=== PATIENT | female | born 1965 | race Hispanic/Latino ===

== ENCOUNTER 2020-07-13 15:03 | Inpatient (IN) | payer OTHER, SELFPAY ==
[~2020-07-13] VITALS: Ht 157.5 cm; Wt 77.8 kg
[2020-07-13] MEDS ORDERED: 0.9%NACL 100ML 100 ML IV ONE (15:21)
[2020-07-13] MEDS ORDERED: DEXAMETHASONE SOD PHOSPHATE 10MG/ML 1ML VIAL ONE (15:22)
[2020-07-13] MEDS ORDERED: CEFTRIAXONE 1G VIAL ONE (15:22)
[2020-07-13 15:30] LABS: BASOPHILS % (AUTO) 0.2 % (0.0-5.0); LYMPHOCYTES % (AUTO) 17.6 % (21.0-51.0); MEAN CORPUSCULAR HEMOGLOBIN 27.1 pg (27.0-33.0); MEAN CORPUSCULAR HGB CONC 32.7 g/dL (32.0-36.0); MEAN CORPUSCULAR VOLUME 82.8 fL (79-99); MONOCYTES % (AUTO) 5.8 % (3.0-13.0); NEUTROPHILS % (AUTO) 76.1 % (40.0-77.0); PLATELET COUNT (AUTO) 114 K/uL (130-400); RED BLOOD CELL COUNT(AUTO) 4.47 MIL/uL (4.00-5.50); RED CELL DISTRIBUTION WIDTH 13.3 % (11.0-15.5); WHITE BLOOD COUNT (AUTO) 6.6 K/uL (4.8-10.8)
[2020-07-13] MEDS ORDERED: AZITHROMYCIN 250 MG TABLET PO ONE (15:32)
[2020-07-13 15:42] LABS: INR 1.12 (0.85-1.15); PROTHROMBIN TIME 11.9 SEC (9.6-11.6)
[2020-07-13 15:43] LABS: PARTIAL THROMBOPLASTIN TIME 29.6 SEC (26.3-35.5)
[2020-07-13 15:46] LABS: CREATININE 0.9 mg/dL (0.5-1.5); POTASSIUM 3.6 mmol/L (3.5-5.1)
[2020-07-13 15:51] LABS: ALBUMIN 3.3 g/dL (3.5-5.0); BILIRUBIN,TOTAL 0.6 mg/dL (0.2-1.0); TOTAL PROTEIN, SERUM 8.6 g/dL (6.0-8.3)
[2020-07-13 16:10] LABS: B-TYPE NATRIURETIC PEPTIDE 32 pg/mL (0-100)
[2020-07-13 16:28] LABS: ABG BASE EXCESS 3.8 mmol/L (-2.0-3.0); ABG HCO3 27.1 mmol/L (21.0-28.0); ABG OXYGEN SATURATION 92.8 % (95.0-99.0); ABG PCO2 36 mmHg (32-45)
[2020-07-13 18:41] LABS: APPEARANCE,URINE CLEAR (CLEAR); BILIRUBIN,URINE Negative (NEGATIVE); COLOR,URINE Yellow (YELLOW); GLUCOSE, URINE (UA) Negative (NEGATIVE); KETONES,URINE Negative (NEGATIVE); LEUKOCYTE ESTERASE ,URINE Negative (NEGATIVE); NITRATE,URINE Negative (NEGATIVE); OCCULT BLOOD,URINE Negative (NEGATIVE); PROTEIN,URINE Negative (NEGATIVE); UROBILINOGEN,URINE 0.2 mg/dL (0.2-1.0)
[2020-07-13] MEDS ORDERED: ONDANSETRON 4MG INJ IV PRN (21:15)
[2020-07-13] MEDS ORDERED: ACETAMINOPHEN 325 MG TAB PO PRN ×2 (21:15)
[2020-07-13] MEDS ORDERED: LACTULOSE 20 GM/30 ML UDCUP PO PRN (21:15)
[2020-07-13 22:01] LABS: HEMOGLOBIN A1C 6.9 % (4.0-6.0)
[2020-07-13 22:11] LABS: CRP QUANTITATIVE 80.1 mg/L (0.00-9.0); THYROID STIMULATING HORMONE 6.85 uIU/mL (0.36-3.74)
[2020-07-14 05:41] LABS: ALBUMIN 3.2 g/dL (3.5-5.0); BILIRUBIN,TOTAL 0.5 mg/dL (0.2-1.0); CREATININE 0.8 mg/dL (0.5-1.5); CRP QUANTITATIVE 84.7 mg/L (0.00-9.0); POTASSIUM 3.9 mmol/L (3.5-5.1); TOTAL PROTEIN, SERUM 7.7 g/dL (6.0-8.3)
[2020-07-14] MEDS ORDERED: LEVOTHYROXINE 150 MCG TABLET ONE (06:25)
[2020-07-14] MEDS: LEVOTHYROXINE 150 MCG TABLET PO SCH (06:30)
[2020-07-14] MEDS ORDERED: METFORMIN HCL 500 MG TABLET ONE ×3 (07:54→17:57)
[2020-07-14] MEDS ORDERED: FAMOTIDINE 20MG TAB ONE ×2 (07:54→22:03)
[2020-07-14] MEDS ORDERED: ENOXAPARIN SODIUM 40 MG/0.4 ML SYRINGE SQ ONE ×2 (07:55→23:37)
[2020-07-14] MEDS ORDERED: HYDROCHLOROTHIAZIDE 25 MG TABLET ONE (07:55)
[2020-07-14] MEDS ORDERED: ENOXAPARIN SODIUM 40 MG/0.4 ML SYRINGE SQ SCH (09:00)
[2020-07-14] MEDS ORDERED: GUAIFENESIN-DM 200/20 MG 10 ML ONE (14:30)
[2020-07-14] MEDS ORDERED: ATORVASTATIN 20 MG TABLET ONE (22:03)
[2020-07-14] MEDS ORDERED: DEXAMETHASONE SOD PHOSPHATE 10MG/ML 1ML VIAL ONE (23:37)
[2020-07-15 02:56] VITALS: BP 137/73
[2020-07-15] MEDS ORDERED: ATOR10 PO (03:27)
[2020-07-15] MEDS ORDERED: LISI5TAB21 PO (03:27)
[2020-07-15] MEDS ORDERED: LEVO150C4 PO (03:27)
[2020-07-15] MEDS ORDERED: METF500S7 PO (03:27)
[2020-07-15] MEDS ORDERED: HYDR12.54 PO (03:27)
[2020-07-15 04:53] LABS: BASOPHILS % (AUTO) 0.1 % (0.0-5.0); HEMATOCRIT 40.5 % (36-48); LYMPHOCYTES % (AUTO) 18.3 % (21.0-51.0); MEAN CORPUSCULAR HEMOGLOBIN 26.8 pg (27.0-33.0); MEAN CORPUSCULAR HGB CONC 32.1 g/dL (32.0-36.0); MEAN CORPUSCULAR VOLUME 83.5 fL (79-99); MONOCYTES % (AUTO) 2.4 % (3.0-13.0); NEUTROPHILS % (AUTO) 78.6 % (40.0-77.0); PLATELET COUNT (AUTO) 163 K/uL (130-400); RED BLOOD CELL COUNT(AUTO) 4.85 MIL/uL (4.00-5.50); RED CELL DISTRIBUTION WIDTH 13.2 % (11.0-15.5); WHITE BLOOD COUNT (AUTO) 8.7 K/uL (4.8-10.8)
[2020-07-15 05:06] LABS: ALBUMIN 3.4 g/dL (3.5-5.0); BILIRUBIN,TOTAL 0.5 mg/dL (0.2-1.0); CREATININE 0.8 mg/dL (0.5-1.5); CRP QUANTITATIVE 41.7 mg/L (0.00-9.0); POTASSIUM 3.7 mmol/L (3.5-5.1); TOTAL PROTEIN, SERUM 8.7 g/dL (6.0-8.3)
[2020-07-15] MEDS: LEVOTHYROXINE 150 MCG TABLET PO SCH (06:30)
[2020-07-15 08:03] VITALS: BP 111/60
[2020-07-15] MEDS: HYDROCHLOROTHIAZIDE 25 MG TABLET PO SCH (08:06)
[2020-07-15] MEDS: LISINOPRIL 10 MG TABLET PO SCH (08:06)
[2020-07-15] MEDS: FAMOTIDINE 20MG TAB PO SCH ×2 (08:06→20:18)
[2020-07-15] MEDS: METFORMIN HCL 500 MG TABLET PO SCH ×3 (08:07→16:42)
[2020-07-15] MEDS: DEXAMETHASONE SOD PHOSPHATE 4 MG/ML 1ML VIAL IVP SCH (08:18)
[2020-07-15] MEDS: ENOXAPARIN SODIUM 40 MG/0.4 ML SYRINGE SQ SCH ×2 (08:18→20:16)
[2020-07-15] MEDS: GUAIFENESIN-DM 200/20 MG 10 ML PO PRN ×2 (11:36→16:42)
[2020-07-15 12:00] VITALS: BP 114/53
[2020-07-15 16:00] VITALS: BP 122/61
[2020-07-15 20:00] VITALS: BP 125/71
[2020-07-15] MEDS: ATORVASTATIN 20 MG TABLET PO SCH ×2 (20:17→20:18)
[2020-07-16 00:11] VITALS: BP 113/55
[2020-07-16 03:47] VITALS: BP 127/67
[2020-07-16 04:32] LABS: LYMPHOCYTES % (AUTO) 17.8 % (21.0-51.0); MEAN CORPUSCULAR HEMOGLOBIN 27.7 pg (27.0-33.0); MEAN CORPUSCULAR HGB CONC 33.3 g/dL (32.0-36.0); MEAN CORPUSCULAR VOLUME 83.1 fL (79-99); MONOCYTES % (AUTO) 6.2 % (3.0-13.0); NEUTROPHILS % (AUTO) 75.3 % (40.0-77.0); PLATELET COUNT (AUTO) 141 K/uL (130-400); RED BLOOD CELL COUNT(AUTO) 4.33 MIL/uL (4.00-5.50); RED CELL DISTRIBUTION WIDTH 12.8 % (11.0-15.5)
[2020-07-16 04:53] LABS: ALBUMIN 3.1 g/dL (3.5-5.0); BILIRUBIN,TOTAL 0.4 mg/dL (0.2-1.0); CREATININE 0.9 mg/dL (0.5-1.5); CRP QUANTITATIVE 23.7 mg/L (0.00-9.0); POTASSIUM 3.5 mmol/L (3.5-5.1); TOTAL PROTEIN, SERUM 7.9 g/dL (6.0-8.3)
[2020-07-16] MEDS: LEVOTHYROXINE 150 MCG TABLET PO SCH (06:27)
[2020-07-16 07:50] VITALS: BP 118/58
[2020-07-16] MEDS: DEXAMETHASONE SOD PHOSPHATE 4 MG/ML 1ML VIAL IVP SCH (08:34)
[2020-07-16] MEDS: METFORMIN HCL 500 MG TABLET PO SCH ×4 (08:34→17:01)
[2020-07-16] MEDS: ENOXAPARIN SODIUM 40 MG/0.4 ML SYRINGE SQ SCH ×2 (08:34→20:34)
[2020-07-16] MEDS: LISINOPRIL 10 MG TABLET PO SCH (08:35)
[2020-07-16] MEDS: HYDROCHLOROTHIAZIDE 25 MG TABLET PO SCH (08:35)
[2020-07-16] MEDS: FAMOTIDINE 20MG TAB PO SCH ×2 (08:35→20:34)
[2020-07-16] MEDS ORDERED: PHARMACY COMMUNICATION MISC SCH (10:00)
[2020-07-16 11:04] VITALS: BP 109/63
[2020-07-16] MEDS ORDERED: COMPOUND IV REFRIGERATED 1 EACH IVSOLN MISC PRN (15:00)
[2020-07-16] MEDS ORDERED: REMDESIVIR (EUA) 520 200 MG in 0.9% NACL 250ML 250 ML IV ONE (15:00)
[2020-07-16 15:53] VITALS: BP 104/59
[2020-07-16] MEDS: ATORVASTATIN 20 MG TABLET PO SCH (20:34)
[2020-07-16 20:40] VITALS: BP 129/70
[2020-07-16] MEDS: GUAIFENESIN-DM 200/20 MG 10 ML PO PRN (21:12)
[2020-07-17 00:25] VITALS: BP 137/67
[2020-07-17 03:52] VITALS: BP 134/65
[2020-07-17] MEDS ORDERED: REMDESIVIR LABS MISC SCH (06:00)
[2020-07-17 06:03] LABS: LYMPHOCYTES % (AUTO) 26.2 % (21.0-51.0); MEAN CORPUSCULAR HGB CONC 32.4 g/dL (32.0-36.0); MEAN CORPUSCULAR VOLUME 83.3 fL (79-99); MONOCYTES % (AUTO) 6.1 % (3.0-13.0); NEUTROPHILS % (AUTO) 67.2 % (40.0-77.0); PLATELET COUNT (AUTO) 167 K/uL (130-400); RED BLOOD CELL COUNT(AUTO) 4.44 MIL/uL (4.00-5.50); RED CELL DISTRIBUTION WIDTH 13.1 % (11.0-15.5); WHITE BLOOD COUNT (AUTO) 5.7 K/uL (4.8-10.8)
[2020-07-17] MEDS: LEVOTHYROXINE 150 MCG TABLET PO SCH (06:41)
[2020-07-17 07:03] LABS: ALBUMIN 3.1 g/dL (3.5-5.0); BILIRUBIN,TOTAL 0.4 mg/dL (0.2-1.0); CREATININE 0.9 mg/dL (0.5-1.5); POTASSIUM 3.5 mmol/L (3.5-5.1); TOTAL PROTEIN, SERUM 7.8 g/dL (6.0-8.3)
[2020-07-17 08:00] VITALS: BP_SYST 108; BP_SYST 129; BP_DIAS 56; BP_DIAS 68
[2020-07-17] MEDS: LISINOPRIL 10 MG TABLET PO SCH (08:33)
[2020-07-17] MEDS: HYDROCHLOROTHIAZIDE 25 MG TABLET PO SCH (08:33)
[2020-07-17] MEDS: METFORMIN HCL 500 MG TABLET PO SCH ×3 (08:33→16:55)
[2020-07-17] MEDS: FAMOTIDINE 20MG TAB PO SCH ×2 (08:33→20:20)
[2020-07-17] MEDS: ENOXAPARIN SODIUM 40 MG/0.4 ML SYRINGE SQ SCH ×2 (08:33→20:21)
[2020-07-17] MEDS: DEXAMETHASONE SOD PHOSPHATE 4 MG/ML 1ML VIAL IVP SCH (08:34)
[2020-07-17 12:00] VITALS: BP 108/61
[2020-07-17] MEDS: REMDESIVIR (EUA) 520 100 MG in 0.9% NACL 250ML 250 ML IV SCH (14:35)
[2020-07-17 16:00] VITALS: BP 115/46
[2020-07-17] MEDS: GUAIFENESIN-DM 200/20 MG 10 ML PO PRN (20:20)
[2020-07-17] MEDS: ATORVASTATIN 20 MG TABLET PO SCH (20:20)
[2020-07-17 21:17] VITALS: BP 129/68
[2020-07-18 01:30] VITALS: BP 118/69
[2020-07-18] MEDS: GUAIFENESIN-DM 200/20 MG 10 ML PO PRN ×2 (02:22→21:04)
[2020-07-18 04:00] VITALS: BP 116/67
[2020-07-18 04:58] LABS: BASOPHILS % (AUTO) 0.2 % (0.0-5.0); EOSINOPHILS % (AUTO) 0.2 % (0.0-8.0); HEMATOCRIT 36.8 % (36-48); LYMPHOCYTES % (AUTO) 25.1 % (21.0-51.0); MEAN CORPUSCULAR HEMOGLOBIN 27.3 pg (27.0-33.0); MEAN CORPUSCULAR HGB CONC 32.1 g/dL (32.0-36.0); MEAN CORPUSCULAR VOLUME 85.2 fL (79-99); MONOCYTES % (AUTO) 7.5 % (3.0-13.0); NEUTROPHILS % (AUTO) 66.5 % (40.0-77.0); PLATELET COUNT (AUTO) 167 K/uL (130-400); RED BLOOD CELL COUNT(AUTO) 4.32 MIL/uL (4.00-5.50); RED CELL DISTRIBUTION WIDTH 13.2 % (11.0-15.5); WHITE BLOOD COUNT (AUTO) 5.9 K/uL (4.8-10.8)
[2020-07-18 05:13] LABS: BILIRUBIN,TOTAL 0.4 mg/dL (0.2-1.0); CREATININE 0.8 mg/dL (0.5-1.5); CRP QUANTITATIVE 8.3 mg/L (0.00-9.0); POTASSIUM 3.8 mmol/L (3.5-5.1); TOTAL PROTEIN, SERUM 7.6 g/dL (6.0-8.3)
[2020-07-18] MEDS: LEVOTHYROXINE 150 MCG TABLET PO SCH (07:06)
[2020-07-18 08:00] VITALS: BP 126/68
[2020-07-18] MEDS: METFORMIN HCL 500 MG TABLET PO SCH ×3 (08:39→16:20)
[2020-07-18] MEDS: FAMOTIDINE 20MG TAB PO SCH ×2 (08:39→21:05)
[2020-07-18] MEDS: DEXAMETHASONE SOD PHOSPHATE 4 MG/ML 1ML VIAL IVP SCH (08:39)
[2020-07-18] MEDS: ENOXAPARIN SODIUM 40 MG/0.4 ML SYRINGE SQ SCH ×2 (08:40→21:04)
[2020-07-18] MEDS: HYDROCHLOROTHIAZIDE 25 MG TABLET PO SCH (08:40)
[2020-07-18] MEDS: LISINOPRIL 10 MG TABLET PO SCH (08:40)
[2020-07-18 12:00] VITALS: BP 132/78
[2020-07-18] MEDS: REMDESIVIR (EUA) 520 100 MG in 0.9% NACL 250ML 250 ML IV SCH (15:00)
[2020-07-18 16:00] VITALS: BP 132/64
[2020-07-18 20:25] VITALS: BP 122/60
[2020-07-18] MEDS: ATORVASTATIN 20 MG TABLET PO SCH (21:05)
[2020-07-19 05:30] VITALS: BP 133/71
[2020-07-19] MEDS: LEVOTHYROXINE 150 MCG TABLET PO SCH (05:30)
[2020-07-19 06:07] LABS: EOSINOPHILS % (AUTO) 0.2 % (0.0-8.0); HEMATOCRIT 37.3 % (36-48); LYMPHOCYTES % (AUTO) 28.4 % (21.0-51.0); MEAN CORPUSCULAR HGB CONC 31.9 g/dL (32.0-36.0); MEAN CORPUSCULAR VOLUME 84.8 fL (79-99); MONOCYTES % (AUTO) 7.4 % (3.0-13.0); PLATELET COUNT (AUTO) 161 K/uL (130-400); RED CELL DISTRIBUTION WIDTH 13.2 % (11.0-15.5)
[2020-07-19 06:36] LABS: ALBUMIN 3.1 g/dL (3.5-5.0); BILIRUBIN,TOTAL 0.4 mg/dL (0.2-1.0); CREATININE 0.8 mg/dL (0.5-1.5); CRP QUANTITATIVE 6.8 mg/L (0.00-9.0); POTASSIUM 3.8 mmol/L (3.5-5.1); TOTAL PROTEIN, SERUM 7.5 g/dL (6.0-8.3)
[2020-07-19 08:00] VITALS: BP 123/65
[2020-07-19] MEDS: METFORMIN HCL 500 MG TABLET PO SCH ×3 (08:49→17:07)
[2020-07-19] MEDS: FAMOTIDINE 20MG TAB PO SCH ×2 (08:49→21:22)
[2020-07-19] MEDS: DEXAMETHASONE SOD PHOSPHATE 4 MG/ML 1ML VIAL IVP SCH (08:50)
[2020-07-19] MEDS: ENOXAPARIN SODIUM 40 MG/0.4 ML SYRINGE SQ SCH ×2 (08:51→21:25)
[2020-07-19] MEDS: LISINOPRIL 10 MG TABLET PO SCH (08:52)
[2020-07-19 12:01] VITALS: BP 136/73
[2020-07-19] MEDS: REMDESIVIR (EUA) 520 100 MG in 0.9% NACL 250ML 250 ML IV SCH (14:37)
[2020-07-19] MEDS: GUAIFENESIN-DM 200/20 MG 10 ML PO PRN (14:51)
[2020-07-19 16:00] VITALS: BP 110/71
[2020-07-19 20:00] VITALS: BP 105/57
[2020-07-19] MEDS: ATORVASTATIN 20 MG TABLET PO SCH (21:24)
[2020-07-20] VITALS: BP 112/64
[2020-07-20 03:59] VITALS: BP 116/56
[2020-07-20 04:55] LABS: EOSINOPHILS % (AUTO) 0.3 % (0.0-8.0); HEMATOCRIT 37.1 % (36-48); LYMPHOCYTES % (AUTO) 25.3 % (21.0-51.0); MEAN CORPUSCULAR HEMOGLOBIN 27.6 pg (27.0-33.0); MEAN CORPUSCULAR HGB CONC 32.9 g/dL (32.0-36.0); MEAN CORPUSCULAR VOLUME 83.9 fL (79-99); MONOCYTES % (AUTO) 5.9 % (3.0-13.0); NEUTROPHILS % (AUTO) 67.3 % (40.0-77.0); PLATELET COUNT (AUTO) 178 K/uL (130-400); RED BLOOD CELL COUNT(AUTO) 4.42 MIL/uL (4.00-5.50); WHITE BLOOD COUNT (AUTO) 5.9 K/uL (4.8-10.8)
[2020-07-20] MEDS: LEVOTHYROXINE 150 MCG TABLET PO SCH (05:31)
[2020-07-20 05:35] LABS: ALBUMIN 3.2 g/dL (3.5-5.0); BILIRUBIN,TOTAL 0.4 mg/dL (0.2-1.0); CREATININE 0.7 mg/dL (0.5-1.5); CRP QUANTITATIVE 5.6 mg/L (0.00-9.0); POTASSIUM 3.8 mmol/L (3.5-5.1); TOTAL PROTEIN, SERUM 7.6 g/dL (6.0-8.3)
[2020-07-20] MEDS: GUAIFENESIN-DM 200/20 MG 10 ML PO PRN ×3 (06:02→21:03)
[2020-07-20 08:20] VITALS: BP 118/54
[2020-07-20] MEDS: DEXAMETHASONE SOD PHOSPHATE 4 MG/ML 1ML VIAL IVP SCH (08:51)
[2020-07-20] MEDS: FAMOTIDINE 20MG TAB PO SCH ×2 (08:51→21:03)
[2020-07-20] MEDS: METFORMIN HCL 500 MG TABLET PO SCH ×3 (08:51→16:19)
[2020-07-20] MEDS: ENOXAPARIN SODIUM 40 MG/0.4 ML SYRINGE SQ SCH ×2 (08:52→21:12)
[2020-07-20 12:00] VITALS: BP 100/51
[2020-07-20] MEDS: REMDESIVIR (EUA) 520 100 MG in 0.9% NACL 250ML 250 ML IV SCH (15:00)
[2020-07-20 16:00] VITALS: BP 115/59
[2020-07-20 19:00] VITALS: BP 128/69
[2020-07-20] MEDS: ATORVASTATIN 20 MG TABLET PO SCH (21:03)
[2020-07-21] VITALS: BP 124/68
[2020-07-21 04:00] VITALS: BP 132/71
[2020-07-21 05:17] LABS: BASOPHILS % (AUTO) 0.2 % (0.0-5.0); EOSINOPHILS % (AUTO) 0.2 % (0.0-8.0); HEMATOCRIT 37.4 % (36-48); LYMPHOCYTES % (AUTO) 23.5 % (21.0-51.0); MEAN CORPUSCULAR HEMOGLOBIN 27.3 pg (27.0-33.0); MEAN CORPUSCULAR HGB CONC 32.6 g/dL (32.0-36.0); MEAN CORPUSCULAR VOLUME 83.7 fL (79-99); MONOCYTES % (AUTO) 6.5 % (3.0-13.0); NEUTROPHILS % (AUTO) 68.3 % (40.0-77.0); PLATELET COUNT (AUTO) 168 K/uL (130-400); RED BLOOD CELL COUNT(AUTO) 4.47 MIL/uL (4.00-5.50); RED CELL DISTRIBUTION WIDTH 13.4 % (11.0-15.5); WHITE BLOOD COUNT (AUTO) 6.3 K/uL (4.8-10.8)
[2020-07-21 05:41] LABS: ALBUMIN 3.3 g/dL (3.5-5.0); BILIRUBIN,TOTAL 0.4 mg/dL (0.2-1.0); CREATININE 0.7 mg/dL (0.5-1.5); CRP QUANTITATIVE 3.6 mg/L (0.00-9.0); POTASSIUM 3.8 mmol/L (3.5-5.1); TOTAL PROTEIN, SERUM 7.7 g/dL (6.0-8.3)
[2020-07-21] MEDS: LEVOTHYROXINE 150 MCG TABLET PO SCH (05:50)
[2020-07-21] MEDS: METFORMIN HCL 500 MG TABLET PO SCH ×2 (08:48→12:20)
[2020-07-21] MEDS: FAMOTIDINE 20MG TAB PO SCH (08:48)
[2020-07-21] MEDS: DEXAMETHASONE SOD PHOSPHATE 4 MG/ML 1ML VIAL IVP SCH (08:49)
[2020-07-21] MEDS: ENOXAPARIN SODIUM 40 MG/0.4 ML SYRINGE SQ SCH (08:49)
[2020-07-21 09:44] VITALS: BP 112/59
[2020-07-21] MEDS ORDERED: APIX2.5T PO (12:06)
[2020-07-21] MEDS ORDERED: DEXA6TAB PO (12:06)
[2020-07-21] MEDS ORDERED: PANT40TA55 PO (12:06)
[2020-07-21 13:00] VITALS: BP 116/61
== END 2020-07-21 15:00 | disposition home or self-care (01) | DRG 177 ==
LOC: EDH 15:03 → EDHIP 15:04 → OBSVTOIN 15:04 → 2AH 07-15 02:42
PROVIDERS: ADMIT Internal Medicine; ATTEND Internal Medicine
PROC: XW13325 Transfusion of Convalescent Plasma (Nonautologous) into Peripheral Vein, Percutaneous Approach, New Technology Group 5 (ICD-10-PCS; principal; 2020-07-14)
DX: U07.1 COVID-19 (principal); J12.82 Pneumonia due to coronavirus disease 2019; J96.01 Acute respiratory failure with hypoxia; D69.6 Thrombocytopenia, unspecified; E87.8 Other disorders of electrolyte and fluid balance, not elsewhere classified; E78.5 Hyperlipidemia, unspecified; E03.9 Hypothyroidism, unspecified; I10 Essential (primary) hypertension; Z79.899 Other long term (current) drug therapy; Z79.84 Long term (current) use of oral hypoglycemic drugs; E11.9 Type 2 diabetes mellitus without complications; R00.1 Bradycardia, unspecified
CPT/HCPCS: 36415; 36600; 71045; 80053; 81003; 82550; 82728; 82803; 82948; 83036; 83605; 83615; 83880; 84145; 84443; 84484; 85025; 85378; 85610; 85730; 86140; 86900; 86901; 86927; 87040; 87426; 87804; 87880; 93005; 94760; 99291; G0378; J0696; J1100; J1650; J7050

== ENCOUNTER → 2024-04-20 | Outpatient (CLI) | payer OTHER ==
[~2024-04-20] MED LIST: APIX2.5T PO; ATOR10 PO; DEXA6TAB PO; LEVO150C4 PO; METF500S9 PO; PANT40TA55 PO
== END | disposition home or self-care (01) ==
LOC: RAH 08:31
PROVIDERS: ATTEND Internal Medicine
DX: Z13.6 Encounter for screening for cardiovascular disorders (principal)
CPT/HCPCS: 75571